=== PATIENT | female | born 2000 | race Caucasian/White ===

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

== ENCOUNTER → 2018-01-08 19:27 | Outpatient (CLI) | payer OTHER, SELFPAY ==
[2018-01-08 23:19] LABS: Chlamydia Trachomatis by PCR Negative (Negative); Neisserai gonorrhoeae by PCR Negative (Negative); Probe Check PASS; Sample Adequacy Control PASS; Specimen Processing Control PASS
== END ==
PROVIDERS: Visit Provider Nurse Practitioner Women's Health
DX: R30.0 Dysuria (principal); N89.8 Other specified noninflammatory disorders of vagina; Z11.3 Encounter for screening for infections with a predominantly sexual mode of transmission
CPT/HCPCS: 87070; 87086; 87088; 87205; 87491; 87591

== ENCOUNTER → 2018-03-17 17:12 | Outpatient (CLI) | payer OTHER, SELFPAY | PROVIDERS: Visit Provider Obstetrics & Gynecology | DX: N76.0 Acute vaginitis (principal); R30.0 Dysuria | CPT/HCPCS: 87070; 87077; 87086; 87088; 87205 ==

== ENCOUNTER → 2018-04-02 15:21 | Outpatient (CLI) | payer OTHER, SELFPAY ==
[2018-04-02 18:20] LABS: Chlamydia Trachomatis by PCR Negative (Negative); Neisserai gonorrhoeae by PCR Negative (Negative); Probe Check PASS; Sample Adequacy Control PASS; Specimen Processing Control PASS
== END ==
PROVIDERS: Visit Provider Obstetrics & Gynecology
DX: N89.8 Other specified noninflammatory disorders of vagina (principal)
CPT/HCPCS: 87070; 87205; 87491; 87591

== ENCOUNTER → 2018-04-03 08:41 | Outpatient (CLI) | payer OTHER, SELFPAY ==
[2018-04-03 11:02] LABS: HIV - WCH Non-Reactive (Nonreactive)
[2018-04-08 03:08] LABS: HCV Quant. RNA PCR HCV Not Detected IU/mL (.)
[2018-04-08 11:17] LABS: HEPATITIS B SURFACE AG Negative (Negative); HSV 1 IgG < 0.91 index (0.00-0.90); HSV 2 IgG < 0.91 index (0.00-0.90)
[2018-04-10 03:16] LABS: Rapid Plasmin Reagin (RPR) NONREACTIVE (NONREACTIVE)
== END ==
PROVIDERS: Family Provider Pediatrics; PCP Pediatrics; Visit Provider Nurse Practitioner Women's Health
DX: Z11.3 Encounter for screening for infections with a predominantly sexual mode of transmission (principal)
CPT/HCPCS: 36415; 86592; 86695; 86696; 86703; 87340; 87522

== ENCOUNTER → 2018-04-23 15:52 | Outpatient (CLI) | payer OTHER, SELFPAY ==
[2018-04-23 16:42] LABS: Pregnancy, Serum, hCG Quali. NEGATIVE Negative (0-9 Nonpreg)
== END ==
PROVIDERS: Family Provider Pediatrics; PCP Pediatrics; Visit Provider Nurse Practitioner
DX: R10.30 Lower abdominal pain, unspecified (principal); R11.0 Nausea
CPT/HCPCS: 36415; 84703

== ENCOUNTER → 2018-05-14 18:00 | Outpatient (CLI) | payer OTHER, SELFPAY | PROVIDERS: Visit Provider Nurse Practitioner Women's Health | DX: N89.8 Other specified noninflammatory disorders of vagina (principal) | CPT/HCPCS: 87070; 87077; 87186; 87205 ==

== ENCOUNTER → 2018-06-03 12:58 | Outpatient (CLI) | payer OTHER, SELFPAY ==
--- NOTE | 2018-06-03 13:00 | US_ITS ---
STUDY: ULTRASOUND OF THE FEMALE PELVIS - COMPLETE REASON FOR EXAM: Female, 18 years old. Bilateral pelvic pain. IUD. LMP: May 28, 2018. TECHNIQUE: Transabdominal and Transvaginal. Transvaginal ultrasound was obtained for better assessment of the ovaries. TECHNICAL QUALITY: Adequate. COMPARISON: None. FINDINGS: The uterus is anteverted and is in a midline position. The uterus measures 7.2 cm x 4.3 cm x 3.1 cm. Small amount of fluid is seen in the cervix. The endometrium measures 4.0 mm in thickness, and is hyperechoic. There is no demonstrated endometrial mass. There is no demonstrated myometrial mass. I.U.D. - The patient does have an I.U.D. it is seen in the fundal portion of uterus. The right ovary is visualized. The right ovary measures 3.2 cm x 3.0 cm x 2.0 cm. Adjacent to the right ovary, there is a 2.6 cm x 1.6 cm x 1.1 cm hypoechoic structure. This may represent possible inflammatory process within the fallopian tube. There is normal arterial and normal venous vascularity. The left ovary is visualized. The left ovary measures 2.8 cm x 2.6 cm x 1.9 cm. There is no left ovarian cyst or ovarian mass. There is no visualized left adnexal mass or complex lesion. There is normal arterial and normal venous vascularity. There is minimal fluid in the cul-de-sac. Polycystic ovary disease: No. US/Transvaginal Non- IMPRESSION: IUD seen within the uterus. Adjacent to the right ovary, there is a 2.6 cm x 1.6 cm x 1.1 cm hypoechoic density. This may represent a dilated fallopian tube with inflammatory process. Clinical correlation is recommended. Small amount of free fluid in the cul-de-sac. Electronically Signed: Florencio Estrada MD at 15:54 EDT Tel [phone], Service support ,
--- NOTE | 2018-06-03 13:00 | US_ITS ---
STUDY: ULTRASOUND OF THE FEMALE PELVIS - COMPLETE REASON FOR EXAM: Female, 18 years old. Bilateral pelvic pain. IUD. LMP: May 28, 2018. TECHNIQUE: Transabdominal and Transvaginal. Transvaginal ultrasound was obtained for better assessment of the ovaries. TECHNICAL QUALITY: Adequate. COMPARISON: None. FINDINGS: The uterus is anteverted and is in a midline position. The uterus measures 7.2 cm x 4.3 cm x 3.1 cm. Small amount of fluid is seen in the cervix. The endometrium measures 4.0 mm in thickness, and is hyperechoic. There is no demonstrated endometrial mass. There is no demonstrated myometrial mass. I.U.D. - The patient does have an I.U.D. it is seen in the fundal portion of uterus. The right ovary is visualized. The right ovary measures 3.2 cm x 3.0 cm x 2.0 cm. Adjacent to the right ovary, there is a 2.6 cm x 1.6 cm x 1.1 cm hypoechoic structure. This may represent possible inflammatory process within the fallopian tube. There is normal arterial and normal venous vascularity. The left ovary is visualized. The left ovary measures 2.8 cm x 2.6 cm x 1.9 cm. There is no left ovarian cyst or ovarian mass. There is no visualized left adnexal mass or complex lesion. There is normal arterial and normal venous vascularity. There is minimal fluid in the cul-de-sac. Polycystic ovary disease: No. US/Pelvic (Non ) IMPRESSION: IUD seen within the uterus. Adjacent to the right ovary, there is a 2.6 cm x 1.6 cm x 1.1 cm hypoechoic density. This may represent a dilated fallopian tube with inflammatory process. Clinical correlation is recommended. Small amount of free fluid in the cul-de-sac. Electronically Signed: Florencio Estrada MD at 15:54 EDT Tel [phone], Service support ,
== END ==
PROVIDERS: Family Provider Pediatrics; PCP Pediatrics; Visit Provider Obstetrics & Gynecology
DX: N70.93 Salpingitis and oophoritis, unspecified (principal)
CPT/HCPCS: 76830; 76856; 93976

== ENCOUNTER → 2018-06-04 13:23 | Outpatient (CLI) | payer OTHER, SELFPAY ==
[2018-06-04 16:36] LABS: Chlamydia Trachomatis by PCR Negative (Negative); Neisserai gonorrhoeae by PCR Negative (Negative); Probe Check PASS; Sample Adequacy Control PASS; Specimen Processing Control PASS
== END ==
PROVIDERS: Visit Provider Obstetrics & Gynecology
DX: Z20.2 Contact with and (suspected) exposure to infections with a predominantly sexual mode of transmission (principal)
CPT/HCPCS: 87491; 87591

== ENCOUNTER → 2018-06-25 19:08 | Outpatient (CLI) | payer OTHER, SELFPAY ==
[2018-06-25 21:40] LABS: Chlamydia Trachomatis by PCR Negative (Negative); Neisserai gonorrhoeae by PCR Negative (Negative); Probe Check PASS; Sample Adequacy Control PASS; Specimen Processing Control PASS
== END ==
PROVIDERS: Family Provider Pediatrics; PCP Pediatrics; Referring Provider Nurse Practitioner Women's Health; Visit Provider Nurse Practitioner Women's Health
DX: Z11.3 Encounter for screening for infections with a predominantly sexual mode of transmission (principal)
CPT/HCPCS: 87070; 87205; 87491; 87591

== ENCOUNTER → 2018-07-06 14:42 | Outpatient (CLI) | payer OTHER, SELFPAY ==
[2018-07-06 16:42] LABS: Absolute Neutrophil Count 4.5 X10^3/uL (2.0-7.7); Basophil# 0.01 X10^3/uL; Basophil% 0.1 % (0-1); Eosinophil# 0.06 X10^3/uL; Eosinophils% 0.8 % (0-5); Hematocrit 39.5 % (37-47); Hemoglobin 12.8 g/dl (12.0-15.0); Lymphocyte % 32.3 % (19-41); Mean Corp Hgb Conc 32.4 g/gl (32-36); Mean Corpuscular Hgb 28.7 pg (27.0-32.0); Mean Corpuscular Volume 88.6 fL (81-99); Mean Platelet Vol. 10.5 fl (6.2-12.0); Monocyte# 0.24 X10^3/uL; Monocyte% 3.4 % (0-10); Neutrophil # 4.49 X10^3/uL (2.7-7.7); Neutrophil % 63.3 % (47-70); Platelet Count 247 K/mm3 (150-450); RBC Distribution Width CV 12.3 % (11.6-14.6); RBC Distribution Width SD 39.4 fl (35.1-43.9); Red Blood Count 4.46 M/mm3 (4.2-5.4); White Blood Count 7.1 K/mm3 (4.4-11.0)
[2018-07-06 17:11] LABS: POSITIVE COUNT NO; POSITIVE DIFFERENTIAL NO; POSITIVE MORPHOLOGY NO
[2018-07-06 17:18] LABS: Ferritin 34 ng/mL (8-252); T4 Free Direct 0.87 ng/dL (0.76-1.46); Thyroid Stim Hormone (TSH) 0.53 uIU/mL (0.358-3.74)
== END ==
PROVIDERS: Family Provider Pediatrics; PCP Pediatrics; Referring Provider Pediatrics; Visit Provider Pediatrics
DX: R53.81 Other malaise (principal); R53.83 Other fatigue
CPT/HCPCS: 36415; 82728; 84439; 84443; 85025

== ENCOUNTER 2018-07-14 05:38 | Day surgery (SDC) | payer OTHER, SELFPAY ==
[2018-07-14] VITALS (9 sets, daily range): BP systolic 81–132; BP diastolic 47–84; PULSE 73–102; RESP 16; TEMP 36.7–37.1; O2SAT 96–100; BMI 20.9
--- NOTE | 2018-07-14 06:30 | IMM_PTH ---
PATIENT: ARMINDA SMALLWOOD LOC: EN U#:[id number] AGE/SX: 18/F ROOM: RE07/14/[address]: Dr. Osman Reynolds MD : 2000 BED: DIS: 07/14/2018 SPEC #: [id number] RECD: 07/15/18 10:33 STATUS: PIYUSH REQ #: [id number] URSZULA: 07/14/18 06:[address]: Osman Reynolds DEPT: IMMUNOHISTOCHEMISTRY RECD BY: Olivia Birmingham ENTERED: 07/15/18 10:33 SP TYPE: IMMUNO OTHR DR: Dr. Gabino Moreno MD Tissues: A - Stomach, NOS Procedures: H Pylori (initial) PHYSICIAN & INSTITUTION [place] [id number] SPECIMEN INFORMATION: Tissue Source: A - Antral biopsy Clinical Info: Esophageal ulcer without bleeding Specimen Number: [id number] CPT code: 66555 METHODOLOGY: Deparaffinized sections of prefer/formalin-fixed tissue or PAP/DQ stained slides are incubated with monoclonal/polyclonal antibodies/oligonucleotide probes. Localization is made via biotin free immunoperoxidase method. Appropriate controls are performed and reacted as expected. Results on target cell population are indicated in the following table: RESULTS: ANTIBODY / CLONE RESULT Block A H Pylori (polyclonal) negative These tests were developed and their performance characteristics determined by [facility]. They may not have been cleared or approved by the [place]. Food and Drug Administration. The FDA has determined that such clearance or approval is not necessary. INTERPRETATION: A. Antral biopsy: Negative for Helicobacter pylori organisms. KIM:laura 07/15/18
--- NOTE | 2018-07-14 06:30 | GASB_PTH ---
PATIENT: ARMINDA SMALLWOOD LOC: EN U#:[id number] AGE/SX: 18/F ROOM: RE07/14/[address]: Dr. Osman Reynolds MD : 2000 BED: DIS: 07/14/2018 SPEC #: [id number] RECD: 07/14/18 09:53 STATUS: PIYUSH LEVAR #: [id number] URSZULA: 07/14/18 06:[address]: Osman Reynolds DEPT: SURGICAL PATHOLOGY RECD BY: Omid Cervantes ENTERED: 07/14/18 11:56 SP TYPE: Gastric Bx OTHR DR: Dr. Gabino Moreno MD Tissues: A - Gastric mucous membrane B - Esophageal mucous membrane C - Esophageal mucous membrane D - Esophageal mucous membrane Procedures: Special Stain Group II Special Stain Group I Surgery Specimen Level IV GMS Stain (control) Alcian Blue/PAS (control) HEADER OPERATION: EGD (MOD) PRE-OP DIAGNOSIS: Ulcer of esophageal without bleeding TISSUE SUBMITTED: A - Antral biopsy for H. pylori and path, B - Distal esophagus at GE junction biopsy, C - Distal esophagus at ulcer biopsy, D - Mid esophagus biopsy MICROSCOPIC DIAGNOSIS A. Antral biopsy: Mild gastritis. See microscopic description and comment. B. Distal esophagus at GE junction, biopsy: Fragments of gastroesophageal mucosa with chronic inflammation. Intestinal metaplasia (goblet cell metaplasia) is not identified. See comment. C. Distal esophagus at ulcer, biopsy: Fragments of squamous epithelium with ulceration and acute and chronic inflammation. Detached fragments of fibrinopurulent exudate. Special stain for fungi is negative for organisms; matched control is appropriate. D. Mid esophagus, biopsy: Fragments of squamous epithelium, no pathologic diagnosis. SJ:laura 07/15/18 COMMENT A. The results of immunohistochemistry for Helicobacter pylori will be reported separately ([id number]). B. The specimen predominantly consists of gastric mucosa. Alcian blue/PAS stain with matched control is used in the evaluation of the specimen. MICROSCOPIC DESCRIPTION Slides are reviewed. A. The specimen shows fragments of gastric mucosa with chronic inflammatory cell infiltrates in the lamina propria consisting of lymphocytes and plasma cells, consistent with mild chronic gastritis. GROSS DESCRIPTION A - Received in fixative is one container labeled with the patient's name and designated antral biopsy. The specimen consists of one irregular fragment of light mejia soft tissue that measures 0.6 x 0.2 x 0.1 cm. The specimen is totally submitted in one cassette. B - Received in fixative is one container labeled with the patient's name and designated distal esophagus at GE junction. The specimen consists of one irregular fragment of light mejia soft tissue that measures 0.2 x 0.2 x 0.1 cm. The specimen is totally submitted in one cassette. C - Received in fixative is one container labeled with the patient's name and designated distal esophagus at ulcer biopsy. The specimen consists of multiple irregular fragments of light mejia soft tissue that in aggregate measure 0.3 x 0.3 x 0.1 cm. The specimen is totally submitted in one cassette. D - Received in fixative is one container labeled with the patient's name and designated mid esophagus biopsy. The specimen consists of multiple irregular fragments of light mejia soft tissue that in aggregate measure 0.4 x 0.4 x 0.1 cm. The specimen is totally submitted in one cassette. / SJ:laura 07/14/18 TC:2 CPT: 63531 x4, 34292, 97229
--- NOTE | 2018-07-14 06:49 | OP.ENDO_ITS ---
Patient Name: Constance Phoenix Procedure Date: 07/14/2018 6:21 AM Date of : 2000 Age: 18 Procedure: Upper GI endoscopy Indications: Endoscopy to assess acute esophageal injury after caustic ingestion. Exedrin pill injury Providers: Osman Reynolds MD Medicines: Midazolam 5 mg IV, Meperidine 100 mg IV Complications: No immediate complications. Procedure: Pre-Anesthesia Assessment: - Prior to the procedure, a History and Physical was performed, and patient medications and allergies were reviewed. The patient's tolerance of previous anesthesia was also reviewed. The risks and benefits of the procedure and the sedation options and risks were discussed with the patient. All questions were answered, and informed consent was obtained. Prior Anticoagulants: The patient has taken no previous anticoagulant or antiplatelet agents. ASA Grade Assessment: I - A normal, healthy patient. After reviewing the risks and benefits, the patient was deemed in satisfactory condition to undergo the procedure. After obtaining informed consent, the endoscope was passed under direct vision. Throughout the procedure, the patient's blood pressure, pulse, and oxygen saturations were monitored continuously. The gastroscope was introduced through the mouth, and advanced to the second part of duodenum. The upper GI endoscopy was accomplished without difficulty. The patient tolerated the procedure well. Moderate Sedation: Moderate (conscious) sedation was personally administered by the endoscopist. The following parameters were monitored: oxygen saturation, heart rate, blood pressure, and response to care. Total physician intraservice time was 15 minutes. Scope In: 6:34:32 AM Scope Out: 6:40:27 AM Total Procedure Duration Time 0 hours 5 minutes 55 seconds Findings: The Z-line was irregular and was found 36 cm from the incisors. Biopsies were taken with a cold forceps for histology at the EG junction Two superficial esophageal ulcers, Kissing ulcer, with no bleeding and no stigmata of recent bleeding were found 35 cm from the incisors. Biopsies were taken with a cold forceps for histology. Mid esophagus rings. Biopsied The entire examined stomach was normal. Biopsies were taken with a cold forceps for histology. The examined duodenum was normal. Impression: - Z-line irregular, 36 cm from the incisors. Biopsied. - Non-bleeding distal esophageal ulcers. Biopsied. Small hiatal hernia Rings in mid esophagus, biopsied, possible eosinophilic esophagitis - Normal stomach. Biopsied. - Normal examined duodenum. Recommendation: - Discharge patient to home. - Resume previous diet. - Continue present medications of OTC omeprazole and liquid antacids while awaiting biopsies. - Telephone my office for pathology results in 1 week. Procedure Code(s): --- Professional --- 58761, Esophagogastroduodenoscopy, flexible, transoral; with biopsy, single or multiple 49332, 59, Moderate sedation services provided by the same physician or other qualified health patient care assistant performing the diagnostic or therapeutic service that the sedation supports, requiring the presence of an independent trained observer to assist in the monitoring of the patient's level of consciousness and physiological status; initial 15 minutes of intraservice time, patient age 5 years or older Diagnosis Code(s): --- Professional --- K22.8, Other specified diseases of esophagus K22.10, Ulcer of esophagus without bleeding T54.94XA, Toxic effect of unspecified corrosive substance, undetermined, initial encounter CPT copyright 2017 [employer]. All rights reserved. The codes documented in this report are preliminary and upon vineyardist review may be revised to meet current compliance requirements. Osman Reynolds MD 07/14/2018 6:49:33 AM This report has been signed electronically. Number of Addenda: 0 Note Initiated On: 07/14/2018 6:21 AM
== END 2018-07-14 07:39 | disposition home or self-care (01) ==
LOC: EN 05:39 → AC 05:40
PROVIDERS: Family Provider Pediatrics; PCP Pediatrics; Referring Provider Surgery; Visit Provider Surgery
PROC: (CPT 43239; principal; 2018-07-14 06:25)
DX: K29.70 Gastritis, unspecified, without bleeding (principal); K22.10 Ulcer of esophagus without bleeding; K20.9 Esophagitis, unspecified; K44.9 Diaphragmatic hernia without obstruction or gangrene; F41.9 Anxiety disorder, unspecified; F32.9 Major depressive disorder, single episode, unspecified; F98.8 Other specified behavioral and emotional disorders with onset usually occurring in childhood and adolescence; Z79.899 Other long term (current) drug therapy
CPT/HCPCS: 43239; 88305; 88312; 88313; 88342; 99152; 99153; J7120

== ENCOUNTER → 2018-09-18 18:07 | Outpatient (CLI) | payer OTHER, SELFPAY ==
[2018-09-18 11:42] VITALS: BMI 20.9
[2018-09-19 00:25] LABS: Chlamydia Trachomatis by PCR Negative (Negative); Neisserai gonorrhoeae by PCR Negative (Negative); Probe Check PASS; Sample Adequacy Control PASS; Specimen Processing Control PASS
== END ==
PROVIDERS: Family Provider Pediatrics; PCP Pediatrics; Referring Provider Nurse Practitioner Women's Health; Visit Provider Nurse Practitioner Women's Health
DX: R10.2 Pelvic and perineal pain (principal)
CPT/HCPCS: 87070; 87205; 87491; 87591

== ENCOUNTER → 2018-09-23 08:38 | Outpatient (CLI) | payer OTHER, SELFPAY ==
[2018-09-18 11:42] VITALS: BMI 20.9
--- NOTE | 2018-09-23 08:39 | US_ITS ---
STUDY: ULTRASOUND OF THE FEMALE PELVIS - COMPLETE REASON FOR EXAM: Female, 18 years old. Pelvic pain LMP: 09/16/2018 TECHNIQUE: Transabdominal and Transvaginal TECHNICAL QUALITY: Adequate. COMPARISON: None. FINDINGS: The uterus is anteverted and is in a midline position. The uterus measures 6.7 x 4 x 3.2 cm. Normal uterine cervix. The endometrium measures 2.3 mm in thickness, and is hyperechoic. There is no demonstrated endometrial mass. There is no demonstrated myometrial mass. I.U.D. - The patient does not have an I.U.D. The right ovary is visualized. The right ovary measures 3 x 2.3 x 1.7 cm. There is no right ovarian cyst or ovarian mass. There is no visualized right adnexal mass or complex lesion. There is normal arterial and normal venous vascularity. The left ovary is visualized. The left ovary measures 2.5 x 1.9 x 1.8 cm. There is no left ovarian cyst or ovarian mass. There is no visualized left adnexal mass or complex lesion. There is normal arterial and normal venous vascularity. There is no fluid in the cul-de-sac. US/Transvaginal Non- IMPRESSION: Normal female pelvis. Electronically Signed: Osorio Sanderson MD at 7:31 EST , Service support ,
--- NOTE | 2018-09-23 08:39 | US_ITS ---
STUDY: ULTRASOUND OF THE FEMALE PELVIS - COMPLETE REASON FOR EXAM: Female, 18 years old. Pelvic pain LMP: 09/16/2018 TECHNIQUE: Transabdominal and Transvaginal TECHNICAL QUALITY: Adequate. COMPARISON: None. FINDINGS: The uterus is anteverted and is in a midline position. The uterus measures 6.7 x 4 x 3.2 cm. Normal uterine cervix. The endometrium measures 2.3 mm in thickness, and is hyperechoic. There is no demonstrated endometrial mass. There is no demonstrated myometrial mass. I.U.D. - The patient does not have an I.U.D. The right ovary is visualized. The right ovary measures 3 x 2.3 x 1.7 cm. There is no right ovarian cyst or ovarian mass. There is no visualized right adnexal mass or complex lesion. There is normal arterial and normal venous vascularity. The left ovary is visualized. The left ovary measures 2.5 x 1.9 x 1.8 cm. There is no left ovarian cyst or ovarian mass. There is no visualized left adnexal mass or complex lesion. There is normal arterial and normal venous vascularity. There is no fluid in the cul-de-sac. US/Pelvic (Non ) IMPRESSION: Normal female pelvis. Electronically Signed: Osorio Sanderson MD at 7:31 EST , Service support ,
== END ==
PROVIDERS: Family Provider Pediatrics; PCP Pediatrics; Referring Provider Nurse Practitioner Women's Health; Visit Provider Nurse Practitioner Women's Health
DX: R10.2 Pelvic and perineal pain (principal)
CPT/HCPCS: 76830; 76856; 93976

== ENCOUNTER → 2018-11-24 12:27 | Outpatient (CLI) | payer OTHER, SELFPAY ==
[2018-11-05 10:41] VITALS: BMI 20.9
--- NOTE | 2018-11-24 12:31 | US_ITS ---
STUDY: ULTRASOUND OF THE FEMALE PELVIS - COMPLETE REASON FOR EXAM: Female, 18 years old. Bleeding following IUD placement. LMP: October 29, 2018. TECHNIQUE: Transabdominal and Transvaginal TECHNICAL QUALITY: Adequate. COMPARISON: None. FINDINGS: The uterus is anteverted and is in a midline position. The uterus measures 7.9 cm x 5.3 cm x 3.1 cm. Normal uterine cervix. The endometrium measures 5.0 mm in thickness, and is hyperechoic. There is no demonstrated endometrial mass. There is no demonstrated myometrial mass. I.U.D. - The patient does have an I.U.D. the IUD is seen within the fundal and body portion of the uterus. The right ovary is visualized. The right ovary measures 3.1 cm x 2.2 cm x 1.7 cm. There is no right ovarian cyst or ovarian mass. There is no visualized right adnexal mass or complex lesion. There is normal arterial and normal venous vascularity. The left ovary is visualized. The left ovary measures 2.0 cm x 1.8 cm x 1.9 cm. There is no left ovarian cyst or ovarian mass. There is no visualized left adnexal mass or complex lesion. There is normal arterial and normal venous vascularity. There is no fluid in the cul-de-sac. The pre void volume of the bladder was 70 ml. Polycystic ovary disease: No. US/Transvaginal Non- IMPRESSION: The IUD is seen within the endometrium. Electronically Signed: Florencio Estrada, at 15:54 EST , Service support ,
--- NOTE | 2018-11-24 12:31 | US_ITS ---
STUDY: ULTRASOUND OF THE FEMALE PELVIS - COMPLETE REASON FOR EXAM: Female, 18 years old. Bleeding following IUD placement. LMP: October 29, 2018. TECHNIQUE: Transabdominal and Transvaginal TECHNICAL QUALITY: Adequate. COMPARISON: None. FINDINGS: The uterus is anteverted and is in a midline position. The uterus measures 7.9 cm x 5.3 cm x 3.1 cm. Normal uterine cervix. The endometrium measures 5.0 mm in thickness, and is hyperechoic. There is no demonstrated endometrial mass. There is no demonstrated myometrial mass. I.U.D. - The patient does have an I.U.D. the IUD is seen within the fundal and body portion of the uterus. The right ovary is visualized. The right ovary measures 3.1 cm x 2.2 cm x 1.7 cm. There is no right ovarian cyst or ovarian mass. There is no visualized right adnexal mass or complex lesion. There is normal arterial and normal venous vascularity. The left ovary is visualized. The left ovary measures 2.0 cm x 1.8 cm x 1.9 cm. There is no left ovarian cyst or ovarian mass. There is no visualized left adnexal mass or complex lesion. There is normal arterial and normal venous vascularity. There is no fluid in the cul-de-sac. The pre void volume of the bladder was 70 ml. Polycystic ovary disease: No. US/Pelvic (Non ) IMPRESSION: The IUD is seen within the endometrium. Electronically Signed: Florencio Estrada, at 15:54 EST , Service support ,
== END ==
PROVIDERS: Family Provider Pediatrics; PCP Pediatrics; Referring Provider Nurse Practitioner Women's Health; Visit Provider Nurse Practitioner Women's Health
DX: Z30.431 Encounter for routine checking of intrauterine contraceptive device (principal)
CPT/HCPCS: 76830; 76856; 93976

== ENCOUNTER → 2018-11-25 17:16 | Outpatient (CLI) | payer OTHER, SELFPAY ==
[2018-11-05 10:41] VITALS: BMI 20.9
[2018-11-27 12:39] LABS: HSV 2 IgG < 0.91 index (0.00-0.90)
== END ==
PROVIDERS: Family Provider Pediatrics; PCP Pediatrics; Referring Provider Nurse Practitioner Women's Health; Visit Provider Nurse Practitioner Women's Health
DX: Z11.3 Encounter for screening for infections with a predominantly sexual mode of transmission (principal)
CPT/HCPCS: 86695; 86696

== ENCOUNTER → 2019-04-30 17:08 | Outpatient (CLI) | payer OTHER, SELFPAY ==
[2019-04-30 08:27] VITALS: BMI 20.9
== END ==
PROVIDERS: Family Provider Pediatrics; PCP Pediatrics; Referring Provider Obstetrics & Gynecology; Visit Provider Obstetrics & Gynecology
DX: B37.3 Candidiasis of vulva and vagina (principal)
CPT/HCPCS: 87070; 87205

== ENCOUNTER → 2019-07-02 | Outpatient (CLI) | payer OTHER, SELFPAY ==
[2019-07-02 09:13] VITALS: BMI 20.9
[2019-07-02 13:28] LABS: Chlamydia Trachomatis by PCR Negative (Negative); Neisserai gonorrhoeae by PCR Negative (Negative); Probe Check PASS; Sample Adequacy Control PASS; Specimen Processing Control PASS
== END | disposition home or self-care (01) ==
LOC: LABSPEC 11:33
PROVIDERS: Family Provider Pediatrics; PCP Pediatrics; Visit Provider Nurse Practitioner Women's Health
DX: B37.3 Candidiasis of vulva and vagina (principal); Z11.3 Encounter for screening for infections with a predominantly sexual mode of transmission
CPT/HCPCS: 87070; 87205; 87491; 87591

== ENCOUNTER → 2019-12-28 | Outpatient (CLI) | payer OTHER, SELFPAY ==
[2019-12-28 15:04] VITALS: BMI 20.9
[2019-12-28 17:05] LABS: Chlamydia Trachomatis by PCR Negative (Negative); Neisserai gonorrhoeae by PCR Negative (Negative); Probe Check PASS; Sample Adequacy Control PASS; Specimen Processing Control PASS
[2019-12-28 17:07] LABS: HIV - WCH Non-Reactive (Nonreactive)
[2019-12-30 01:56] LABS: Rapid Plasmin Reagin (RPR) NONREACTIVE (NONREACTIVE)
[2020-01-01 03:06] LABS: HCV Quant. RNA PCR HCV Not Detected IU/mL (.)
[2020-01-01 05:51] LABS: HSV 2 IgG < 0.91 index (0.00-0.90)
== END | disposition home or self-care (01) ==
LOC: LAB 15:19
PROVIDERS: PCP Pediatrics; Referring Provider Nurse Practitioner Women's Health; Visit Provider Nurse Practitioner Women's Health
DX: Z11.3 Encounter for screening for infections with a predominantly sexual mode of transmission (principal)
CPT/HCPCS: 36415; 86592; 86695; 86696; 86703; 87491; 87522; 87591

== ENCOUNTER → 2020-04-17 | Outpatient (CLI) | payer OTHER, SELFPAY ==
[2019-12-28 15:04] VITALS: BMI 20.9
--- NOTE | 2020-04-17 10:15 | RAD_ITS ---
STUDY: X-RAY - RIGHT FOOT CLINICAL: Foot injury from fall 2 days ago. TECHNIQUE: 3 view(s) of the foot. COMPARISON: None. FINDINGS: Normal talus, calcaneus, and tarsal bones. Normal visualized subtalar, talonavicular, calcaneocuboid, tarsal and tarsometatarsal articulations. Normal metatarsi. Normal metatarsophalangeal joint of the great toe. Normal tibial and fibular sesamoid bones. Normal interphalangeal joint of the great toe. Normal phalanges of the great toe. Normal second through fifth metatarsophalangeal joints. Normal interphalangeal joints and phalanges of the lesser toes. The soft tissue structures are unremarkable. RAD/Foot min 3 Views IMPRESSION: Normal x-ray examination of the right foot. Electronically Signed: Junaid Gallagher MD at 12:39 EDT Tel , Service support ,
== END | disposition home or self-care (01) ==
LOC: RAD 10:04
PROVIDERS: PCP Pediatrics; Referring Provider Pediatrics; Visit Provider Pediatrics
DX: S99.921A Unspecified injury of right foot, initial encounter (principal)
CPT/HCPCS: 73630

== ENCOUNTER → 2020-07-12 | Outpatient (CLI) | payer OTHER, SELFPAY ==
[2020-07-12 13:45] VITALS: BMI 19.3
[2020-07-17 12:51] LABS: HPV Reflexed? NOT INDICATED
[2020-07-18 03:06] LABS: Chlamydia By Nucleic Acid AMP Negative (Negative)
[2020-07-18 12:01] LABS: Gonococcus By Nucleic Acid AMP Negative (Negative)
== END | disposition home or self-care (01) ==
LOC: LABSPEC 16:31
PROVIDERS: PCP Pediatrics; Referring Provider Nurse Practitioner Women's Health; Visit Provider Nurse Practitioner Women's Health
DX: Z12.4 Encounter for screening for malignant neoplasm of cervix (principal); Z11.3 Encounter for screening for infections with a predominantly sexual mode of transmission
CPT/HCPCS: 87491; 87591; 88175; G0145

== ENCOUNTER → 2020-11-21 | Outpatient (CLI) | payer BC, SELFPAY ==
[2020-11-21 11:44] VITALS: BMI 19.9
[2020-11-23 06:07] LABS: Chlamydia By Nucleic Acid AMP Negative (Negative)
[2020-11-23 08:25] LABS: Gonococcus By Nucleic Acid AMP Negative (Negative)
== END | disposition home or self-care (01) ==
LOC: LABSPEC 12:38
PROVIDERS: PCP Pediatrics; Referring Provider Nurse Practitioner Women's Health; Visit Provider Nurse Practitioner Women's Health
DX: N76.1 Subacute and chronic vaginitis (principal)
CPT/HCPCS: 87070; 87205; 87491; 87591

== ENCOUNTER → 2021-04-11 | Outpatient (CLI) | payer OTHER, SELFPAY ==
[2021-04-11 13:09] VITALS: BMI 19.9
[2021-04-14 03:07] LABS: Chlamydia By Nucleic Acid AMP Negative (Negative)
[2021-04-14 08:33] LABS: Gonococcus By Nucleic Acid AMP Negative (Negative)
== END | disposition home or self-care (01) ==
LOC: LABSPEC 14:36
PROVIDERS: PCP Family Medicine; Visit Provider Nurse Practitioner Women's Health
DX: N76.0 Acute vaginitis (principal); Z11.3 Encounter for screening for infections with a predominantly sexual mode of transmission
CPT/HCPCS: 87070; 87205; 87491; 87591

== ENCOUNTER → 2021-05-02 | Outpatient (CLI) | payer OTHER, SELFPAY ==
[2021-05-02 13:42] VITALS: BMI 19.9
== END | disposition home or self-care (01) ==
LOC: LABSPEC 16:27
PROVIDERS: PCP Family Medicine; Referring Provider Nurse Practitioner Women's Health; Visit Provider Nurse Practitioner Women's Health
DX: R30.0 Dysuria (principal)
CPT/HCPCS: 87086; 87088

== ENCOUNTER → 2021-06-27 12:28 | Outpatient (CLI) | payer OTHER, SELFPAY ==
[2021-06-28 22:07] LABS: Chlamydia By Nucleic Acid AMP Negative (Negative)
[2021-06-28 22:32] LABS: Gonococcus By Nucleic Acid AMP Negative (Negative)
== END ==
PROVIDERS: PCP Family Medicine; Referring Provider Obstetrics & Gynecology; Visit Provider Obstetrics & Gynecology
DX: N89.8 Other specified noninflammatory disorders of vagina (principal)
CPT/HCPCS: 87070; 87205; 87491; 87591

== ENCOUNTER 2024-11-02 03:43 | Emergency (ER) | payer BC, SELFPAY ==
[2024-11-02 03:43] VITALS: BP 113/94; PULSE 100; RESP 16; TEMP 36.8; O2SAT 99; BMI 21.1
--- NOTE | 2024-11-02 03:52 | CT_ITS ---
PROCEDURE: ABDOMEN/PELVIS W IV CONT ONLY REASON FOR EXAM: Abdominal pain. Nausea and vomiting. Fever. TECHNIQUE: Axial CT images of the abdomen and pelvis was performed with IV contrast enhancement. Sagittal and coronal reconstructed images were performed for better visualization of the horizontal structures. IV CONTRAST: 95 cc of Isovue 370. COMPARISON: None. FINDINGS: Lung bases: 5 mm pulmonary nodule within the left lower lobe. Remaining lung bases appears clear. Liver: Homogeneous enhancement. No enhancing masses are identified. No intrahepatic ductal dilatation is seen. Gallbladder: Mildly dilated. No calcified gallstones are identified. No pericholecystic inflammation. Spleen: Homogeneous enhancement. No evidence of splenomegaly. Pancreas: No solid or cystic masses are identified. No peripancreatic inflammatory changes. Adrenals: No adrenal masses are seen. Kidneys: Kidneys enhance symmetrically. No hydronephrosis identified bilaterally. Bladder: Moderately distended. No bladder calculi are seen. No bladder wall thickening. Reproductive Organs: Intrauterine device is noted. Follicular cyst is seen on the right measures up to 1.9 cm. Bowel: Large amounts of fluid and debris seen within the stomach. No distended small bowel loops are seen. Mild amounts of fecal retention. No pericolonic inflammatory changes. Appendix: Normal. Lymph nodes: No suspicious lymph node enlargement. Vasculature: Major vascular structures are unremarkable. Peritoneum / Retroperitoneum: Trace free fluid within the right pelvis, likely physiologic. No drainable fluid collections are identified. No free air. Bones: Unremarkable. CT/Abdomen/Pelvis W IV Cont ONLY IMPRESSION: 1. Follicular cyst on the right measures up to 1.9 cm. Trace free fluid is see n within the pelvis, likely physiologic. 2. Intrauterine device is noted. 3. No bowel obstruction is identified. Appendix is negative 4. Additional findings, as detailed above. One or more dose reduction techniques were used (e.g., Automated exposure contr ol, adjustment of the mA and/or kV according to patient size, use of iterative reconstruction technique). Reading [facility]
--- NOTE | 2024-11-02 03:55 | EX.ED.DYSGE1 ---
HPI History of Present Illness Chief Complaint: Abd Pain Narrative Narrative: Patient is a 24-year-old female with a past medical anxiety, depression, ADD, history of ulcer who presents to the emergency department chief complaint of abdominal pain nausea vomiting fever since Friday. She denies any recent contacts. Patient did note that she had episode of vomiting blood yesterday and then had another 1 this afternoon. Patient denies any blood thinning medications. Patient states that her pain is mainly in the epigastric region does not radiate anywhere. [facility] Medical History (Updated 11/02/24 @ 06:[address] Eamon Martinez DO) Anxiety and depression ADD (attention deficit disorder) Home Medications ?Medication ?Instructions ?Recorded ?Last Taken ?Type dextroamphetamine-amphetamine ER 20 mg PO QAM 01/08/18 Unknown History 20 mg 24hr capsule,extend release (Adderall XR) levonorgestrel (Mirena) 1 insert intrauterine ONCE 11/05/18 Unknown History citalopram 40 mg tablet 40 mg PO DAILY 11/02/24 Unknown History dicyclomine 20 mg tablet 20 mg PO TID #20 tabs 11/02/24 Unknown Rx lamotrigine 100 mg tablet 100 mg PO DAILY 11/02/24 Unknown History ondansetron 4 mg disintegrating 4 mg PO Q6H PRN nausea and 11/02/24 Unknown Rx tablet vomiting #20 tabs Allergy/AdvReac Type Severity Reaction Status Date / Time No Known Allergies Allergy Verified 11/02/24 03:46 Family History Father Hypertension Anxiety Mother Anxiety Surgical History teeth extracted Social History Smoking Status: Never smoker alcohol intake: current details: occasionally substance use type: does not use caffeine: Yes what type of physical activity do you participate in: running frequency: 1-2 times per week seatbelt use: sometimes do you feel safe at home: Yes additional social history: 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 [employer] ED ROS Narrative Constitutional: Complains of fever and chills as noted above Eyes: Denies change in vision double vision blurry vision Cardiovascular: Denies chest pain Respiratory: Denies coughing wheezing shortness of breath Abdomen: Complains of abdominal pain, nausea, vomiting : Denies any urinary symptoms Neurological: Denies numbness, weakness, tingling Musculoskeletal: Denies back pain Skin: Denies rashes or lesions EXAM Physical Exam Narrative Exam Narrative: General: Patient was lying in bed did appear to be uncomfortable overall not feeling well Head: Atraumatic, normocephalic Eyes: PERRL bilaterally, EOMI bilaterally, no conjunctival injection noted Neck: Soft, supple, trachea midline Cardiovascular: Regular rate and rhythm Respiratory: Clear to auscultation bilaterally Abdomen: Soft, nondistended, tender to palpation epigastric region but also has tenderness diffusely throughout her abdomen no rebound or guarding on exam Extremities: +5/5 strength noted in the bilateral upper and lower extremities Neurological: Patient following commands knew that she was at [facility] year is 2024 Skin: Warm, dry, intact no rashes or lesions noted Const Vital Signs: 11/02/24 03:43 Temperature 98.2 F Temperature Source Oral Pulse Rate 100 Respiratory Rate 16 Blood Pressure 113/94 H Blood Pressure Mean 100 Pulse Ox 99 Oxygen Delivery Method Room Air MDM MDM MDM Narrative Medical decision making narrative: Patient is a 24-year-old female who presents to the emergency department with a chief complaint of abdominal pain, nausea vomiting, fever. On the differential diagnose includes but limited to pancreatitis, peptic ulcer disease, gastritis, UTI, pyelonephritis. Patient be given IV fluids, Zofran, morphine. Patient CBC was reviewed showed no evidence leukocytosis white blood count normal at 7.9, hemoglobin is 15, platelet count normal at 262. Patient sodium normal 136, potassium was 3.2, creatinine was normal at 0.65. Patient's AST and ALT were 1321 respectively. Patient lipase normal at 53, test was negative. Patient urinalysis reviewed showed no evidence of infection. Patient CT Abdo pelvis with IV contrast reviewed and showed follicular cyst on the right measuring up to 1.9 cm tracely fluid is seen within the pelvis likely physiologic. Intrauterine device is noted. No bowel obstruction identified appendix is negative. There is large amount of fluid and debris seen within the stomach no distended small bowel loops are seen mild amount of fecal retention. Patient tested negative for COVID flu RSV Reevaluation the patient at 6:02 AM she is feeling significantly improved and would like to go home at this point time. She is advised to return with worsening symptoms and concerns. She was encouraged to follow-up with her primary care physician outpatient setting. She will be given prescription for Bentyl and Zofran. Family at bedside is also agreeable this plan all question concerns answered she is discharged home in stable condition. Lab Data Labs: Laboratory Results - last 24 hr 11/02/24 11/02/24 04:13 05:10 WBC 7.9 RBC 5.01 Hgb 15.0 Hct 42.4 MCV 84.6 MCH 29.9 MCHC 35.4 RDW Std Deviation 35.2 RDW Coeff of Caterina 11.5 L Plt Count 262 MPV 10.0 Immature Gran % (Auto) 0.400 Neut % (Auto) 79.1 H Lymph % (Auto) 13.9 L [place] % (Auto) 5.9 Eos % (Auto) 0.4 Baso % (Auto) 0.3 Absolute Neuts (auto) 6.3 Absolute Lymphs (auto) 1.10 Nucleated RBC % 0 Sodium 136 Potassium 3.2 L Chloride 103 Carbon Dioxide 24.0 Anion Gap 8 BUN 10 Creatinine 0.65 Estim Creat Clear Calc 113.26 Est GFR (MDRD) Af Amer 142 Est GFR (MDRD) Non-Af 117 BUN/Creatinine Ratio 15.5 Glucose 117 H Calcium 8.8 Total Bilirubin 0.30 AST 13 L ALT 21 Alkaline Phosphatase 62 Total Protein 7.7 Albumin 3.8 Globulin 3.9 Albumin/Globulin Ratio 1.0 Lipase 53 L Serum , Qual NEGATIVE Urine Color Yellow Urine Clarity Clear Urine pH 7.0 Ur Specific [place] 1.010 Urine Protein 15 H Urine Glucose (UA) Normal Urine Ketones 50 H Urine Occult Blood Negative Urine Nitrite Negative Urine Bilirubin Negative Urine Urobilinogen Normal Ur Leukocyte Esterase Negative Urine RBC 0 SEEN Urine WBC 0 SEEN Ur Squamous Epith Cells 0-5 SEEN Urine Bacteria 0 SEEN Urine Mucus 0 SEEN Radiography Diagnostic Testing: Clinical Impression(s) from Imaging Studies Abdomen/Pelvis CT 11/02/24 03:52 IMPRESSION: 1. Follicular cyst on the right measures up to 1.9 cm. Trace free fluid is seen within the pelvis, likely physiologic. 2. Intrauterine device is noted. 3. No bowel obstruction is identified. Appendix is negative 4. Additional findings, as detailed above. One or more dose reduction techniques were used (e.g., Automated exposure control, adjustment of the mA and/or kV according to patient size, use of iterative reconstruction technique). Reading Location: [facility] Discharge Plan Triage Chief Complaint: Abd Pain ED Provider: Eamon Martinez Dx/Rx/DC Orders Clinical Impression: Abdominal pain, Nausea & vomiting Prescriptions: New ondansetron 4 mg tablet,disintegrating 4 mg PO Q6H PRN (Reason: nausea and vomiting) Qty: 20 0RF dicyclomine 20 mg tablet 20 mg PO TID Qty: 20 0RF No Action dextroamphetamine-amphetamine [Adderall XR] 20 mg capsule,extended release 24hr 20 mg PO QAM Mirena 20 mcg/24 hr (5 years) intrauterine device 1 insert Intrauterine ONCE citalopram 40 mg tablet 40 mg PO DAILY lamotrigine 100 mg tablet 100 mg PO DAILY Primary Care Provider: Care Physician,No Primary Referrals: NOT,DEFINED [Non-Staff] - Activity Restrictions/Additional Instructions: Follow-up your doctor in outpatient setting. Use prescriptions as prescribed. Start with a bland diet advance as tolerated. Return with worsening symptoms or concerns Print Language: Welsh Disposition Disposition: Home, Self Care
[2024-11-02] MEDS: 0.9% Normal Saline (1000mL) 1,000 ML 999 ML IV (04:11)
[2024-11-02] MEDS: Morphine 4 MG/ML Syringe IV (04:11)
[2024-11-02] MEDS: Ondansetron 4 MG/2 ML Vial IV (04:11)
[2024-11-02 04:25] LABS: Absolute Neutrophil Count 6.3 X10^3/uL (2.0-7.7); Basophil# 0.02 X10^3/uL; Basophil% 0.3 % (0-1); Eosinophil# 0.03 X10^3/uL; Eosinophils% 0.4 % (0-5); Hematocrit 42.4 % (37-47); Lymphocyte % 13.9 % (19-41); Mean Corp Hgb Conc 35.4 g/dL (32-36); Mean Corpuscular Hgb 29.9 pg (27.0-32.0); Mean Corpuscular Volume 84.6 fL (81-99); Monocyte# 0.47 X10^3/uL; Monocyte% 5.9 % (0-10); NRBC Flagged by Analyzer 0 % (0-5); Neutrophil # 6.26 X10^3/uL (2.7-7.7); Neutrophil % 79.1 % (47-70); Platelet Count 262 K/mm3 (150-450); RBC Distribution Width CV 11.5 % (11.6-14.6); RBC Distribution Width SD 35.2 fl (35.1-43.9); Red Blood Count 5.01 M/mm3 (4.2-5.4); White Blood Count 7.9 K/mm3 (4.4-11.0)
[2024-11-02 04:41] LABS: AST(SGOT) 13 U/L (15-37); Alanine Aminotransfer ALT/SGPT 21 U/L (13-56); Albumin, Serum 3.8 g/dL (3.2-5.0); Alkaline Phosphatase 62 U/L (45-117); Anion Gap 8 (5-15); BUN 10 mg/dL (7-18); BUN/Creat Ratio 15.5 RATIO (10-20); Calcium,Total 8.8 mg/dL (8.5-10.1); Chloride 103 mmol/L (98-107); Creatinine, Serum 0.65 mg/dL (0.55-1.02); EST Glomerular Filtration Rate 117 mL/min (>60); Est Glom Filt Rate - Afr Amer 142 mL/min (>60); Estimated Creatinine Clearance 113.26 ml/min; Globulin 3.9 g/dL (2.2-4.2); Glucose 117 mg/dL (74-106); Lipase 53 U/L (73-393); Potassium 3.2 mmol/L (3.5-5.1); Protein, Total 7.7 g/dL (6.4-8.2); Sodium Level 136 mmol/L (136-145)
[2024-11-02 04:47] LABS: Internal QC Validated? YES +Cl - CLEAR BKGD
[2024-11-02 04:48] LABS: Pregnancy, Serum, hCG Quali. NEGATIVE Negative
[2024-11-02 05:20] LABS: Bacteria 0 SEEN /hpf (None Seen); Mucous, Urine 0 SEEN /hpf (<or=2+); White Blood Cells 0 SEEN /hpf (0-5)
[2024-11-02 05:21] LABS: Color, Urine Yellow (Yellow); Glucose, Dipstick Normal (Normal); Ketone-Dipstick 50 mg/dl (Negative); Leukocyte Esterase-Dipstick Negative /ul (Negative); Nitrite-Dipstick Negative (Negative); Occult Blood-Urine Negative /ul (Negative); Protein-Dipstick 15 mg/dl (Negative); Urine Bilirubin Dipstick Negative (Negative); Urine Clarity Clear (Clear); Urine Urobilinogen Normal (Normal)
[2024-11-02 05:43] VITALS: BP 106/71; PULSE 82; RESP 16; O2SAT 95
[2024-11-02 05:43] LABS: Red Blood Cells-Urine 0 SEEN /hpf (0-5); Squamous Epithelial Cells - UA 0-5 SEEN /hpf (5-10)
[2024-11-02 06:30] VITALS: BP 107/65; PULSE 81; RESP 16; TEMP 36.7; O2SAT 98
== END 2024-11-02 06:32 | disposition home or self-care (01) ==
PROVIDERS: Emergency Provider Emergency Medicine; Visit Provider Emergency Medicine
DX: R10.9 Unspecified abdominal pain (principal); F41.9 Anxiety disorder, unspecified; F98.8 Other specified behavioral and emotional disorders with onset usually occurring in childhood and adolescence; F32.A Depression, unspecified; Z79.899 Other long term (current) drug therapy; R11.2 Nausea with vomiting, unspecified
CPT/HCPCS: 74177; 80053; 81001; 83690; 84703; 85025; 87631; 96361; 96374; 96375; 99284; Q9967; A4216; J2405

== ENCOUNTER → 2024-11-09 | Outpatient (CLI) | payer BC, SELFPAY ==
[2024-11-09 14:37] LABS: HIV - WCH Non-Reactive (Nonreactive); Syphilis Antibodies Non-reactive
[2024-11-10 05:07] LABS: Thyroid Peroxidase AB 10 IU/mL (0-34)
[2024-11-11 05:07] LABS: Chlamydia By Nucleic Acid AMP Negative (Negative); Gonococcus By Nucleic Acid AMP Negative (Negative)
[2024-11-11 08:56] LABS: HPV Reflexed? NOT INDICATED
== END | disposition home or self-care (01) ==
LOC: BWCLAB 09:40
PROVIDERS: Referring Provider Nurse Practitioner Women's Health; Visit Provider Nurse Practitioner Women's Health
DX: Z12.4 Encounter for screening for malignant neoplasm of cervix (principal); Z11.3 Encounter for screening for infections with a predominantly sexual mode of transmission; E04.9 Nontoxic goiter, unspecified; Z20.2 Contact with and (suspected) exposure to infections with a predominantly sexual mode of transmission
CPT/HCPCS: 36415; 84439; 84443; 86376; 86695; 86696; 86703; 86780; 87491; 87591; 88175; G0145